=== PATIENT | female | born 2000 | race Caucasian/White ===

== ENCOUNTER 2020-12-29 15:10 | Emergency (ER) | payer BC, SELFPAY ==
[2020-12-29 15:22] VITALS: BP 118/68; PULSE 96; RESP 16; TEMP 37.1; O2SAT 100
--- NOTE | 2020-12-29 16:00 | ED.GENADULT ---
HPI - General Adult General Chief complaint: Abdominal Pain Stated complaint: sharp pain in stomach and chest Time Seen by Provider: 12/29/20 16:00 Source: patient, RN notes reviewed and old records reviewed Mode of arrival: ambulatory Limitations: no limitations History of Present Illness HPI narrative: 20year old female who presents to [facility] with complaints of upper epigastric pain for the past 3 nights. She states that she has had diarrhea with episode of diarrhea today. She reports some nausea and has had one episode of vomiting. Patient denies any pain at present time but states that she is nauseated today with appetite today. Patient denies any known fevers chills or sweats, denies any lower abdominal pain or any radiation of her pain. MD complaint: upper epogastric pain Onset (ago): day(s) (3) Location: chest and abdomen Radiation: non-radiation Severity: moderate Severity scale (1-10): 4 Quality: aching Pain Consistency: other (at night) Exacerbating factors: none Associated symptoms: denies other symptoms Treatments prior to arrival: other (tylenol and nicole seltzer cold and flu) Related Data Home Medications Medication Instructions Recorded Confirmed norgestimate-ethinyl estradiol 1 tablet PO DAILY 12/29/20 12/29/20 [Sprintec (28)] Allergies Allergy/AdvReac Type Severity Reaction Status Date / Time No Known Allergies Allergy Verified 12/29/20 15:36 Review of Systems Review of Systems: Narrative: CONSTITUTIONAL: Denies fever, chills, or sweats. EYES: Denies visual changes, redness, or discharge. ENT: Denies rhinorrhea, congestion, sore throat, or otalgia. CARDIOVASCULAR: Denies chest pain, palpitations, or edema. RESPIRATORY: Denies cough or dyspnea. GASTROINTESTINAL: Denies abdominal pain at present reports upper epigastric pain X3 at night,reports nausea, vomiting X1, episodes of diarrhea. GENITOURINARY: Denies dysuria or hematuria. SKIN: Denies rash or itching. MUSCULOSKELETAL: Denies back pain, joint pain, or myalgia. NEUROLOGIC: Denies headache, numbness, or weakness. PSYCHIATRIC: Denies anxiety or depression. All systems reviewed & are unremarkable except as noted in HPI and below PMFSH Past Medical History Medical History (Updated 01/01/21 @ 13:47 by Rose Garber NP) Patient denies medical problems Surgical History Surgical History (Updated 01/01/21 @ 13:43 by Rose Garber NP) No history of previous surgery Family History Family History (Updated 01/01/21 @ 13:44 by Rose Garber NP) Other No significant family history Social History Social History (Updated 01/01/21 @ 10:15 by Rose Garber NP) Smoking status: Never smoker Alcohol intake: never Substance use: never Living arrangements: with family Gender identity (if verbalized by the patient): Female Comments At time of signature, agree with nursing past medical, surgical, social and family history. There is no relevant family history pertinent to the presenting complaint Exam Narrative: Exam Narrative: GENERAL: Well-appearing, well-nourished, and in no acute distress. HEAD: Normocephalic, atraumatic. EYES: PERRLA and EOMI. ENT: Nares clear, no rhinorrhea or epistaxis. Mucous membranes moist.TM's normal with good light reflex, throat pink with no lesion,exudates or tonsil enlargement NECK: Supple.no lymphadenopathy CHEST: Clear to auscultation. No respiratory distress no cough or any dyspnea SAO2 100% on room air. HEART: Regular rate and rhythm. No murmur heard. Normal peripheral pulses. ABDOMEN: Soft, nontender to palpation, nondistended, normal active bowel sounds.Negative McBurney point tenderness. EXTREMITIES: Normal range of motion. No edema. SKIN: Warm, dry, no rash. NEURO: No focal deficits. Alert and oriented x3. Course Vital Signs Vital signs: Vital Signs Temperature 37.1 C 12/29/20 15:22 Pulse Rate 96 12/29/20 15:22 Respiratory Rate 16 12/29/20 15:22 Blood P
== END 2020-12-29 16:15 | disposition home or self-care (01) ==
PROVIDERS: Emergency Provider Registered Nurse
DX: K21.9 Gastro-esophageal reflux disease without esophagitis (principal)
CPT/HCPCS: 99213; G0463